=== PATIENT | female | born 1965 | race Caucasian/White ===

== ENCOUNTER 2020-06-02 09:31 | Outpatient (CLI) | payer OTHER, SELFPAY ==
[2020-06-02 09:43] VITALS: BP 137/92; PULSE 77; RESP 17; TEMP 36.9; O2SAT 99
[2020-06-02 10:31] VITALS: PULSE 95; O2SAT 98
--- NOTE | 2020-06-02 10:36 | PDOC.PAIN_ITS ---
Pain Clinic Procedure Note Procedure Note Procedure Note: RIGHT GENICULAR NERVE BLOCK Date of Service: June 02, 2020 Patient: Jenelle Mendoza Provider: Wendy Almazan MD Pre-operative diagnosis: right knee oA Post-operative diagnosis: same as above COMMENTS: Pre-procedure VAS to the RIGHT knee is 8/10. Jenelle Mendoza has been [facility] for RIGHT genicular nerve block. Jenelle was interviewed and the medical record reviewed. There were no medical, pharmacologic, radiographic or other structural contraindications to attempting fluoroscopically guided RIGHT genicular nerve block. Risks and potential side effects as well as potential benefit of the procedure were reviewed with Jenelle , and her voiced concerns were addressed. After I believed that the patient was completely informed, the printed consent form was signed. Standard time-out procedure was performed. Jenelle was placed in the supine position on the fluoroscopy table and automated blood pressure cuff and pulse oximeter applied. The skin entry points for approaching RIGHT superolateral genicular nerve, the superomedial genicular nerve and the inferomedial genicular was identified under the most advantageous fluoroscopic view and marked. Following thorough Chlorhexadine preparation of the skin and draping, 1% lidocaine infiltration of the skin entry point and subcutaneous tissues was accomplished using a 1.5 25G needle. Next, the 3.5 22G spinal needle was advanced to os at the location of the specific nerve root using fluoroscopic guidance. Next, 1 cc of 0.5% Bupivocaine was injected at each site. The needles were removed without difficulty. Jenelle's vital signs were stable throughout the procedure and were as recorded in the docflowsheet by the nursing staff. If given, dosages of intravenous drugs for anxiolysis and analgesia were documented in MAR. Follow up plans and appointments were discussed with the Jenelle . Post procedure instruction was given as documented in nursing documentation and having met discharge criteria, Jenelle was [facility] from the [facility]. COMMENTS: No complications. Post-procedure VAS to the RIGHT knee is 0/10. The patient will keep track of her RIGHT knee pain over the next four hours. If Jenelle has sufficient pain relief, Jenelle will be a candidate for radiofrequency ablation at the same nerves. Diego WJ1, Clarisa SJ, Mateo KochG, Carlito KochG, Mina HERNANDEZ, Grace PH, Ramirez JW. Radiofrequency treatment relieves chronic knee osteoarthritis pain: a double-blind randomized controlled trial. Pain. 2010;152(3):481-7. doi: 10.1016/j.pain.2010.09.029. Jagruti S1, Luis ON2, Sherri Y3, ?zl?stephanie P2, Young U1, Niko ?m?rl? I. Which one is more effective for the clinical treatment of chronic pain in knee osteoarthritis: radiofrequency neurotomy of the genicular nerves or intra- articular injection? Int J Rheum Dis. 2016 May 27. F/U with Ms Lala APRN on prn basis I personally performed this entire procedure. Wendy Almazan MD Attending Physician
[2020-06-02] MEDS: Omnipaque 240 MG/ML 50 ML BTL IJ (10:38)
[2020-06-02] MEDS: Bupivacaine 0.5% Pres-Free 10 ML VIAL IJ (10:38)
--- NOTE | 2020-06-02 10:42 | DI.RAD_ITS ---
EXAM: XR PAIN CLINIC FLUORO JOINT IN CLINICAL HISTORY: Dx: Osteoarthritis- Right knee. TECHNIQUE: Fluoroscopy was provided for the referring physician for guidance with performing injecti on procedure. COMPARISON: No exams were available for comparison FINDINGS: Please see procedure note for details. Fluoro time: 28 sec RADIATION DOSE DELIVERED:
== END 2020-06-02 09:51 ==
PROVIDERS: PCP Nurse Practitioner Family; Visit Provider Internal Medicine
DX: M17.11 Unilateral primary osteoarthritis, right knee (principal)
CPT/HCPCS: 64450; 77002; Q9967

== ENCOUNTER 2020-06-09 12:39 | Outpatient (CLI) | payer OTHER, SELFPAY ==
[2020-06-09 12:43] VITALS: BP 119/82; PULSE 84; RESP 20; TEMP 37.4; O2SAT 97
[2020-06-09] MEDS: Lactated Ringers 1,000 ML 80 ML IV (13:37)
[2020-06-09] MEDS: Midazolam 2 MG/2 ML VIAL IVP (13:44)
[2020-06-09] MEDS: fentaNYL 100 MCG/2 ML VIAL IVP (13:44)
[2020-06-09] MEDS: Bupivacaine 0.5% Pres-Free 10 ML VIAL IJ (13:59)
[2020-06-09] MEDS: Lidocaine 2% Pres-Free 5 ML VIAL IJ (14:00)
[2020-06-09] MEDS: methylPREDNISolone ACETATE 40 MG/ML VIAL IJ (14:00)
[2020-06-09] MEDS: Lidocaine 1% Pres-Free 30 ML VIAL IJ (14:01)
--- NOTE | 2020-06-09 14:07 | DI.RAD_ITS ---
EXAM: XR PAIN CLINIC FLUORO JOINT IN CLINICAL HISTORY: Dx: Knee Osteoarthritis, RT GENICULAR RADIOFREQUENCY ABLATION TECHNIQUE: 2D and realtime digital imaging was performed. Fluoroscopy was provided in the OR COMPARISON: No exams were available for comparison FINDINGS: C-arm fluoroscopy was utilized by Dr. Almazan during reported right genicular radiofrequency ablation. Renee rd copies show needle placements adjacent to medial and lateral distal femoral metaphysis and medial tibial metaphysis. Please see Dr. Almazan's procedure note. Fluoro time, 59.1 seconds. RADIATION DOSE DELIVERED: Total DLP
[2020-06-09 14:09] VITALS: BP 149/58; PULSE 86; RESP 16; O2SAT 96
--- NOTE | 2020-06-09 15:03 | PDOC.PAIN_ITS ---
Pain Clinic Procedure Note Procedure Note Procedure Note: RIGHT GENICULAR NERVE RADIOFREQUENCY ABLATION WITH THE COOLIEF MACHINE Date of Service: June 09, 2020 Patient: Jenelle Mendoza Provider: Wendy Almazan MD Pre-operative diagnosis: right knee OA Post-operative diagnosis: right knee OA COMMENTS: patient was evaluated by Dr Raya at [facility] for refractory right knee pain, not a surgical candidate for total knee replacement given elevated BMI. patient cannot progress with PT due to right knee pain, referred to [facility] for coolief right genicular RFA. patient received excellent pain relief from diagnostic genicular nerve block. Jenelle Mendoza has been referred to the [facility] for right genicular nerve radiofrequency ablation. Jenelle was interviewed and the medical record reviewed. There were no medical, pharmacologic, radiographic or other structural contraindications to attempting fluoroscopically guided right genicular nerve radiofrequency ablation. Risks and potential side effects as well as potential benefit of the procedure were reviewed with Jenelle Mendoza , and her voiced concerns were addressed. After I believed that the patient was completely informed, the printed consent form was signed. Standard time-out procedure was performed. Jenelle was placed in the supine position on the fluoroscopy table and automated blood pressure cuff and pulse oximeter applied. The skin entry points for approaching right superolateral genicular nerve, the superomedial genicular nerve and the inferomedial genicular was identified under the most advantageous fluoroscopic view and marked. Following thorough Chlorhexadine preparation of the skin and draping, 1% lidocaine infiltration of the skin entry point and subcutaneous tissues was accomplished using a 1.5 25G needle. Next, the 50/17G coolief RF Cannula with a 4 mm active tip was advanced to os at the location of the specific nerve roots (3) using fluoroscopic guidance. Next, sensory and motor testing was performed and no abnormal findings were found. Next, 1 cc of 2% Lidocaine was injected at each site. The lesion was then created with 80 degrees C for 90 seconds. Each needle was advance 1 cm and the lesion was completed again. Each cannula was advanced until the tip reached the posterior aspect of the bone shaft. 1/3 cc of Depomedrol (40 mg/cc) was then injected at each site followed by 2 cc of 0.5% Bupivacaine as the needle was withdrawn. The needles were removed without difficulty. Jenelle's vital signs were stable throughout the procedure and were as recorded in the docflowsheet by the nursing staff. If given, dosages of intravenous drugs for anxiolysis and analgesia were documented in DEC. Follow up plans and appointments were discussed with the Jenelle Mendoza . Post procedure instruction was given as documented in nursing documentation and having met discharge criteria, Jenelle was discharged from the [facility]. COMMENTS: No complications. patient received 1mg of Versed and 25mcg of Fentanyl via IV. Diego WJ1, Clarisa SJ, Mateo JG, Carlito JG, Mina HERNANDEZ, Grace PH, Ramirez JW. Radiofrequency treatment relieves chronic knee osteoarthritis pain: a double-blind randomized controlled trial. Pain. 2011 Dec;152(3):481-7. doi: 10.1016/[email or web address].2010.09.029. Jagruti S1, Luis ON2, Sherri Y3, ?zl?lerden P2, Young U1, Niko ?m?rl? I. Which one is more effective for the clinical treatment of chronic pain in knee osteoarthritis: radiofrequency neurotomy of the genicular nerves or intra- articular injection? Int J Rheum Dis. 2016 May 27. F/U with Ms Asya Reeves APRN on prn basis. I personally performed this entire procedure. Wendy Almazan MD Attending Physician
== END 2020-06-09 12:59 ==
PROVIDERS: PCP Nurse Practitioner Family; Visit Provider Internal Medicine
DX: M17.11 Unilateral primary osteoarthritis, right knee (principal); M25.561 Pain in right knee
CPT/HCPCS: 64624; 77002; J1030; J2250; J3010